=== PATIENT | male | born 1950 | race Two or more races ===

== ENCOUNTER 2017-01-01 18:25 | Inpatient (IN) | payer MEDICARE, OTHER ==
[~2017-01-01] VITALS: Ht 172.7 cm; Wt 86.9 kg
--- NOTE | 2017-01-01 18:25 | NUR ---
pt to ed room 04. sent by dr. saha for evaluation of possible UTI. a/a/o. side raisl up. hob elevated. [facility] and evaluated by ed provider.
--- NOTE | 2017-01-01 18:36 | NUR ---
CALLED [facility], DR ALMARAZ WAS PAGED.
[2017-01-01] MEDS ORDERED: HYDR-4077 PO (18:54)
[2017-01-01] MEDS ORDERED: UMEC1BLS IH (18:54)
[2017-01-01] MEDS ORDERED: CARB200T PO (18:54)
[2017-01-01] MEDS ORDERED: DOXE75CA4 PO (18:54)
[2017-01-01] MEDS ORDERED: QUET25TA PO (18:54)
[2017-01-01] MEDS ORDERED: ACET-868 PO (18:54)
[2017-01-01] MEDS ORDERED: ASPI81TA2 PO (18:54)
[2017-01-01] MEDS ORDERED: FURO20TA4 PO (18:54)
[2017-01-01] MEDS ORDERED: CARV25TA2 PO (18:54)
[2017-01-01] MEDS ORDERED: SORB30SO2 PO (18:54)
[2017-01-01] MEDS ORDERED: NITR0.4T6 SL (18:54)
[2017-01-01] MEDS ORDERED: SILO8CAP PO (18:54)
[2017-01-01] MEDS ORDERED: LACT10SO7 PO (18:54)
[2017-01-01] MEDS ORDERED: ATOR40TA PO (18:54)
[2017-01-01] MEDS ORDERED: DEXA4TAB PO (18:54)
[2017-01-01] MEDS ORDERED: FAMO20TA8 PO (18:54)
[2017-01-01] MEDS ORDERED: LINA290C PO (18:54)
[2017-01-01] MEDS ORDERED: ISOS60TA4 PO (18:54)
[2017-01-01] MEDS ORDERED: MECL-102 PO (18:54)
--- NOTE | 2017-01-01 18:54 | NUR ---
counter checker at bedside.
[2017-01-01 18:59] LABS: BASOPHILS % (AUTO) 0.4 % (0.0-2.0); EOSINOPHILS # (AUTO) 0.1 /CMM (0.0-0.7); EOSINOPHILS % (AUTO) 1.2 % (0.0-6.0); HEMATOCRIT 39 % (39-51); HEMOGLOBIN 12.9 g/dL (13.5-17.5); LYMPHOCYTES % (AUTO) 11.1 % (20.0-44.0); MEAN CORPUSCULAR HEMOGLOBIN 31 PG (26.0-33.0); MEAN CORPUSCULAR HGB CONC 33 g/dl (31.0-36.0); MEAN CORPUSCULAR VOLUME 93 fL (80-96); MONOCYTES # (AUTO) 0.6 /CMM (0.1-1.30); MONOCYTES % (AUTO) 6.7 % (2.0-12.0); NEUTROPHILS # (AUTO) 6.9 /CMM (1.8-8.9); NEUTROPHILS % (AUTO) 80.6 % (43.0-81.0); PLATELET COUNT (AUTO) 277 /CMM (150-450); RDW COEFFICIENT OF VARIATION 13.2 (11.5-15.0); RED BLOOD CELL COUNT(AUTO) 4.19 MIL/uL (4.5-6.0); WHITE BLOOD COUNT (AUTO) 8.6 K/uL (4.3-11.0)
--- NOTE | 2017-01-01 19:07 | NUR ---
chest xray at bedside
--- NOTE | 2017-01-01 19:13 | NUR ---
urine sample collected from patient and send to lab
[2017-01-01 19:15] LABS: ALANINE AMINOTRANSFERASE 30 U/L (12-78); ALBUMIN 3.4 g/dL (3.4-5.0); ALKALINE PHOSPHATASE 158 U/L (46-116); ASPARTATE AMINOTRANSFERASE 19 U/L (15-37); BILIRUBIN,TOTAL 0.3 mg/dL (0.2-1.0); CALCIUM, SERUM 8.3 mg/dL (8.5-10.1); CARBON DIOXIDE 25 mmol/L (21-32); CHLORIDE 105 mmol/L (98-107); GLUCOSE 140 mg/dL (74-106); POTASSIUM 3.8 mmol/L (3.5-5.1); SODIUM SERUM 137 mmol/L (136-145); TOTAL PROTEIN, SERUM 6.8 g/dL (6.4-8.2); UREA NITROGEN, BLOOD 14 mg/dL (7-18)
[2017-01-01 19:17] LABS: APPEARANCE,URINE Clear (CLEAR); BILIRUBIN,URINE Negative (NEGATIVE); BLOOD, URINE Negative Ery/uL (NEGATIVE); COLOR,URINE Yellow (YELLOW); KETONES,URINE Negative (NEGATIVE); LEUKOCYTE ESTERASE ,URINE Negative (NEGATIVE); NITRITE, URINE Negative (NEGATIVE); PROTEIN,URINE Negative (NEGATIVE); UGLUCOSE Negative (NEGATIVE)
[2017-01-01 19:47] LABS: TROPONIN I < 0.017 ng/mL (0.00-0.056)
--- NOTE | 2017-01-01 20:24 | NUR ---
REPORT CALLED TO M/S JERMAINE LOVING. WILL TRANSPORT PT TO ROOM 311.
[2017-01-01 20:45] VITALS: BP 145/70
--- NOTE | 2017-01-01 20:45 | NUR ---
MS RN NOTE: RECEIVED PATIENT FROM ER, NO ACUTE DISTRESS NOTED. BREATHING EVEN AND UNLABORED, NO SOB NOTED. IV TO RIGHT HAND IN PLACE. ORIENTED PATIENT TO ROOM AND USE OF CALL LIGHT. BED LOCKED AND IN LOWEST POSITION, CALL LIGHT IN REACH. WILL CONTINUE TO MONITOR.
--- NOTE | 2017-01-01 21:30 | NUR ---
MS RN NOTE: CALLED DR. UMER ALMARAZ FOR ADMIT ORDER. ORDERS RECEIVED, NOTED AND CARRIED OUT. WILL CONTINUE TO MONITOR.
[2017-01-01] MEDS ORDERED: LEVOFLOXACIN (250MG) 250 MG TABLET PO SCH (22:30)
[2017-01-01] MEDS ORDERED: QUETIAPINE FUMARATE 25 MG TABLET ONE (23:01)
[2017-01-01] MEDS ORDERED: ATORVASTATIN 40 MG TABLET ONE (23:01)
[2017-01-01] MEDS ORDERED: LEVOFLOXACIN (250MG) 250 MG TABLET ONE (23:02)
[2017-01-01] MEDS: ATORVASTATIN 40 MG TABLET PO SCH (23:11)
[2017-01-01] MEDS: QUETIAPINE FUMARATE 25 MG TABLET PO SCH (23:11)
[2017-01-02] MEDS: IV D5/ 0.9% NACL 1,000 ML IV PRN ×2 (00:52→20:34)
--- NOTE | 2017-01-02 06:15 | NUR ---
MS RN NOTE: PATIENT RESTING IN BED, NO ACUTE DISTRESS NOTED. BREATHING EVEN AND UNLABORED, NO SOB NOTED. IV TO RIGHT HAND IN PLACE, INFUSING D5NS AT 75 ML/HR. BED LOCKED AND IN LOWEST POSITION, CALL LIGHT IN REACH. WILL CONTINUE ENDORSE TODAY NURSE TO CONTINUE WITH PLAN OF CARE.
--- NOTE | 2017-01-02 07:25 | NUR ---
RN Initial Notes: Received patient resting in bed. Patient alert oriented x3. Patient on room air. Non-labored breathing noted. No signs of distress. Patient denies pain. IV on right hand patent and intact. Call light within reach. Will continue to monitor.
[2017-01-02 07:48] LABS: BASOPHILS % (AUTO) 0.3 % (0.0-2.0); EOSINOPHILS # (AUTO) 0.3 /CMM (0.0-0.7); EOSINOPHILS % (AUTO) 3.4 % (0.0-6.0); HEMATOCRIT 39 % (39-51); HEMOGLOBIN 13.2 g/dL (13.5-17.5); LYMPHOCYTES % (AUTO) 23.2 % (20.0-44.0); MEAN CORPUSCULAR HEMOGLOBIN 32 PG (26.0-33.0); MEAN CORPUSCULAR HGB CONC 34 g/dl (31.0-36.0); MEAN CORPUSCULAR VOLUME 95 fL (80-96); MONOCYTES # (AUTO) 0.9 /CMM (0.1-1.30); MONOCYTES % (AUTO) 10.4 % (2.0-12.0); NEUTROPHILS # (AUTO) 5.3 /CMM (1.8-8.9); NEUTROPHILS % (AUTO) 62.7 % (43.0-81.0); PLATELET COUNT (AUTO) 239 /CMM (150-450); RED BLOOD CELL COUNT(AUTO) 4.09 MIL/uL (4.5-6.0); WHITE BLOOD COUNT (AUTO) 8.5 K/uL (4.3-11.0)
[2017-01-02] MEDS ORDERED: LEVOFLOXACIN (250MG) 250 MG TABLET PO SCH (07:51)
[2017-01-02 08:00] VITALS: BP 159/73
[2017-01-02] MEDS ORDERED: ACETAMINOPHEN 325 MG TABLET PO PRN (08:30)
[2017-01-02] MEDS ORDERED: NITROGLYCERIN 0.4 MG/TAB BOTTLE SL PRN (08:30)
[2017-01-02 08:32] LABS: CREATININE 0.7 mg/dL (0.6-1.3); POTASSIUM 3.5 mmol/L (3.5-5.1)
[2017-01-02] MEDS: hydrALAZINE HCL 50 MG TABLET PO SCH ×3 (09:00→17:00)
[2017-01-02] MEDS ORDERED: LACTULOSE 10 G/15 ML UDC (PYXIS) PO PRN (09:00)
[2017-01-02] MEDS ORDERED: LINACLOTIDE 290 MCG PO SCH (09:30)
[2017-01-02] MEDS: ISOSORBIDE MONONITRATE 20 MG TABLET PO SCH ×2 (10:59→16:32)
[2017-01-02] MEDS: FUROSEMIDE 20 MG TABLET PO SCH (11:01)
[2017-01-02] MEDS: CARVEDILOL 12.5 MG TABLET PO SCH ×2 (11:01→21:00)
[2017-01-02] MEDS: CARBAMAZEPINE 200 MG TABLET PO SCH ×3 (11:02→17:31)
[2017-01-02] MEDS: DEXAMETHASONE 4 MG TABLET PO SCH (11:04)
[2017-01-02] MEDS: SORBITOL SOLUTION 30 ML PO SCH ×2 (11:05→17:32)
[2017-01-02] MEDS: UMECLIDINIUM BRM INH SCH (11:06)
[2017-01-02] MEDS: VILANTEROL TR INH SCH (11:06)
[2017-01-02] MEDS: ASPIRIN 81 MG TAB.CHEW PO SCH (11:27)
[2017-01-02] MEDS: MECLIZINE HCL 25 MG TABLET PO SCH ×3 (13:33→23:38)
[2017-01-02 16:00] VITALS: BP 112/67
[2017-01-02] MEDS: SILODOSIN 8 MG PO SCH (17:31)
[2017-01-02] MEDS: DOXEPIN HCL (25 MG) 25 MG CAPSULE PO SCH (17:32)
--- NOTE | 2017-01-02 18:56 | NUR ---
MS RN Closing Notes: Needs provided, attended, and anticipated. Patient stable. No signs of distress. No shortness of breath noted. Patient denies pain. IV access intact and patent. No adverse reactions of medications noted. MD Anabel notified of recent CT wo Contrast results. Awaiting orders. Call light within reach.
--- NOTE | 2017-01-02 19:30 | NUR ---
RN INITIAL NOTES: RECEIVED REPORT FROM KIKA DEAN, PT IN BED, AWAKE, A/O X2-3 NAURUAN SPEAKING, RESPIRATION EVEN AND UNLABORED, DENIES ANY PAIN OR DISCOMFORT AT THIS TIME, HAS RIGHT HAND IV ACCESS PATENT AND FLUSHING WELL, INFUISNG WITH D5NS AT 75ML/HR, NO S/S OF REDNESS OR INFILTRATION NOTED. BLE OFFLOADED, SAFETY PRECAUTIONS FOR FALL INITIATED CALL LIGHT IN REACH WILL CONTINUE TO MONITOR
[2017-01-02 20:00] VITALS: BP 105/55
--- NOTE | 2017-01-02 20:00 | NUR ---
RN NOTES: DR ALMARAZ AWARE OF THE RESULT OF MRI BRAIN, NO NEW ORDERS MADE
[2017-01-02 21:15] VITALS: BP 111/56
[2017-01-02] MEDS: ATORVASTATIN 40 MG TABLET PO SCH (21:15)
[2017-01-02] MEDS: QUETIAPINE FUMARATE 25 MG TABLET PO SCH ×2 (21:16→22:00)
--- NOTE | 2017-01-02 21:17 | NUR ---
non administration of coreg: coreg 25mg tab not administered to the pt due to decrease blood pressure and heart rate, 111/56 hr 63, pt denies any head ache light headedness or dizziness, rickie mckinnon turkmen speaking translated for the pt
--- NOTE | 2017-01-02 21:51 | NUR ---
RN NOTES: PT ASKED FOR SNACK, JUICE AND CRACKERS, CONSUMED 100% WITH GOOD APPETITE, NO ASPIRATION NOTED
[2017-01-02] MEDS ORDERED: ATORVASTATIN 40 MG TABLET PO SCH (22:00)
--- NOTE | 2017-01-02 22:05 | NUR ---
RN NOTES: THERE'S 2 ORDERS FOR SEROQUEL 50MG FOR PT, SCHEDULED FOR 2200, "SEROQUEL 50MG PO AT 2200", MEDICATION GIVEN TO THE PT, AND THERE'S ANOTHER ONE APPEARING PINK IN THE COMPUTER, RELAYED TO PHYSICAL TRAINERJÚNIOR FAJARDO, STATED TO DISREGARD THE OTHER MEDICATION ORDER
--- NOTE | 2017-01-02 22:30 | NUR ---
RN NOTES: PT IN BED, SLEEPING, RESPIRATION EVEN AND UNLABORED, NO FACIAL GRIMACE NOTED, IV ACCESS REMAINS PATENT AND FLUSHING WELL, INFUSING WITH D5NS AT 75ML/HR, BLE KEPT OFFLOADED, SAFETY PRECAUTIONS FOR FALL REMAINS ENGAGED CALL LIGHT IN REACH, ENDORSED TO RN KHALIF FOR CONTINUITY OF CARE
--- NOTE | 2017-01-02 22:30 | NUR ---
MS RN NOTES RECEIVED REPORT FROM VANESSA.PATIENT SOUND ASLEEP AT THIS TIME.WILL CONTINUE TO MONITOR STATUS
--- NOTE | 2017-01-02 23:30 | NUR ---
MS RN NOTES SOUND ASLEEP,ANTIVERT Q 6 HELD.
[2017-01-03] MEDS: MECLIZINE HCL 25 MG TABLET PO SCH ×4 (05:18→23:50)
--- NOTE | 2017-01-03 06:00 | NUR ---
MS RN NOTES DUE ANTIVERT ADMINISTERED.PM CARE RENDERED BY LUI DUPREE.NO FALL,NO INURY.IN NO ACUTE DISTRESS.ENDORSE TO DAY NURSE FOR FERNANDO.
--- NOTE | 2017-01-03 07:30 | NUR ---
MS RN Initial Notes: Received patient resting in bed. Non-labored breathing noted. No shortness of breath. No signs of distress. IV patent and intact. Patient alert oriented X3. Call light within reach. Will continue to monitor.
[2017-01-03 08:00] VITALS: BP 150/75
[2017-01-03] MEDS: ASPIRIN 81 MG TAB.CHEW PO SCH (08:24)
[2017-01-03] MEDS: FUROSEMIDE 20 MG TABLET PO SCH (08:24)
[2017-01-03] MEDS: DEXAMETHASONE 4 MG TABLET PO SCH (08:30)
[2017-01-03] MEDS: ISOSORBIDE MONONITRATE 20 MG TABLET PO SCH ×2 (08:31→17:12)
[2017-01-03] MEDS: CARVEDILOL 12.5 MG TABLET PO SCH ×2 (08:35→21:17)
[2017-01-03] MEDS: FAMOTIDINE (20 MG) 20 MG TABLET PO SCH (08:35)
[2017-01-03] MEDS: hydrALAZINE HCL 50 MG TABLET PO SCH ×3 (08:36→18:04)
[2017-01-03] MEDS: CARBAMAZEPINE 200 MG TABLET PO SCH ×3 (08:38→17:12)
[2017-01-03] MEDS: SORBITOL SOLUTION 30 ML PO SCH ×2 (08:38→17:12)
[2017-01-03] MEDS: UMECLIDINIUM BRM INH SCH (08:39)
[2017-01-03] MEDS: VILANTEROL TR INH SCH (08:39)
[2017-01-03] MEDS: IV D5/ 0.9% NACL 1,000 ML IV PRN (13:46)
[2017-01-03 16:00] VITALS: BP_SYST 105; BP_SYST 130; BP_DIAS 57; BP_DIAS 88
[2017-01-03] MEDS: DOXEPIN HCL (25 MG) 25 MG CAPSULE PO SCH (18:06)
[2017-01-03] MEDS: SILODOSIN 8 MG PO SCH (18:08)
--- NOTE | 2017-01-03 19:25 | NUR ---
MS RN Closing Notes: Needs provided, attended, and anticipated. Patient resting in bed. Patient stable. No shortness of breath noted. No signs of distress. Endorsed to next shift. Call light within reach.
[2017-01-03 20:00] VITALS: BP 112/63
--- NOTE | 2017-01-03 20:00 | NUR ---
MS/RN OPENING NOTES PATIENT IN BED, ALERT, ORIENTED X2. SPEAKS LITTLE Welsh, REWUIRE ASSISTANCE DUE TO RIGHT EYE VISION PROBLEM. INFORMED REGARDING PLAN OF CARE. WILL CONTINUE TO MONITOR AND PROVIDE CARE.
[2017-01-03 20:04] VITALS: BP 112/63
[2017-01-03] MEDS ORDERED: LEVOFLOXACIN (250MG) 250 MG TABLET PO SCH (21:00)
[2017-01-03] MEDS: QUETIAPINE FUMARATE 25 MG TABLET PO SCH ×2 (21:17→21:18)
[2017-01-03] MEDS: ATORVASTATIN 40 MG TABLET PO SCH (21:17)
[2017-01-04] MEDS: IV D5/ 0.9% NACL 1,000 ML IV PRN (03:28)
[2017-01-04] MEDS: MECLIZINE HCL 25 MG TABLET PO SCH ×3 (05:37→18:08)
--- NOTE | 2017-01-04 07:01 | NUR ---
MS/RN CLOSING NOTES PATIENT IN BED, ALERTX2.NO S/S OF DISCOMFORT. WILL ENDORSE TO AM RN REGARDING PLAN OF CARE.+
--- NOTE | 2017-01-04 07:30 | NUR ---
RECEIVED PT IN BED, SLEEPING BUT ABLE TO AROUSE. PT SHOWS NO SOB OR SIGNS OF PAIN. IV ON R HAND RUNNING D5NS AT 75ML/HR. SAFETY MEASURES ARE IN PLACE. WILL CONTINUE TO MONITOR.
[2017-01-04 08:00] VITALS: BP 156/78
[2017-01-04] MEDS: DEXAMETHASONE 4 MG TABLET PO SCH (08:52)
[2017-01-04] MEDS: SORBITOL SOLUTION 30 ML PO SCH ×2 (08:52→16:18)
[2017-01-04] MEDS: ASPIRIN 81 MG TAB.CHEW PO SCH (08:53)
[2017-01-04] MEDS: hydrALAZINE HCL 50 MG TABLET PO SCH ×3 (08:53→16:19)
[2017-01-04] MEDS: FUROSEMIDE 20 MG TABLET PO SCH (08:53)
[2017-01-04] MEDS: CARVEDILOL 12.5 MG TABLET PO SCH (08:53)
[2017-01-04] MEDS: ISOSORBIDE MONONITRATE 20 MG TABLET PO SCH ×2 (08:53→16:18)
[2017-01-04] MEDS: CARBAMAZEPINE 200 MG TABLET PO SCH ×3 (08:54→16:19)
[2017-01-04] MEDS: UMECLIDINIUM BRM INH SCH (08:54)
[2017-01-04] MEDS: VILANTEROL TR INH SCH (08:54)
[2017-01-04] MEDS: FAMOTIDINE (20 MG) 20 MG TABLET PO SCH (09:02)
--- NOTE | 2017-01-04 11:20 | NUR ---
Social service consult requested by Dr. Sravan Little regarding pt. lives alone. Pt. is a 66 year old male who was admitted to [facility] for generalized weakness. SW met with pt. bedside along with LUI Black to assist SW in translation. Pt. is Moldovan speaking. Pt. is alert and oriented x 2. Pt. informed SW he is living in [place] with a couple named Diana Harding and Titi Harding. Pt is unable to provide address and phone number to his facility in [place]. Pt. informed SW he was at [facility] and was discharged to a facility in [place]. Prior to being at [facility], pt. was living alone in [place]. Pt. receives approximately $964/ month in SSI benefits. Pt. states he has two brothers but was only able to provide name and phone number for one of them Titi Chowdary . Pt. states he has not been able to speak with his brothers since his phone has been disconnected due to non-payment. Pt. drinks alcohol and drinks six packs of beer daily for the past 25 years. Pt. is a cigarette smoker and smokes a pack per day. Pt. has been smoking for the past 32 years. SW to follow up with case management regarding placement. Addendum: 01/04/17 at 1137 by DULCE SMITH SARAH informed dependency case manager Nash regarding pt's prior facility.
[2017-01-04 16:00] VITALS: BP 107/57
[2017-01-04 16:19] VITALS: BP 107/57
[2017-01-04] MEDS: SILODOSIN 8 MG PO SCH (18:07)
[2017-01-04] MEDS: DOXEPIN HCL (25 MG) 25 MG CAPSULE PO SCH (18:08)
--- NOTE | 2017-01-04 18:40 | NUR ---
PT WAS DISCHARGED TO LOCATED WITHIN [facility] BY AMBULANCE. PT LEFT IN STABLE CONDITION, NO SOB OR COMPLAINTS OF PAIN. REPORT WAS GIVEN TO BRENDA AT [facility]. ALL MEDS WERE GIVEN ORDERED PRIOR TO DISCHARGE. Addendum: 01/04/17 at 1906 by ROWAN LERNER RN IV AND ID BAND WERE REMOVED.
== END 2017-01-04 19:03 | DRG 93 ==
LOC: ER 18:28 → MED 20:27
PROVIDERS: ADMIT Internal Medicine Nephrology; ATTEND Internal Medicine Nephrology
DX: G72.0 Drug-induced myopathy (principal); R53.1 Weakness; N40.0 Benign prostatic hyperplasia without lower urinary tract symptoms; T38.0X5A Adverse effect of glucocorticoids and synthetic analogues, initial encounter; Y92.89 Other specified places as the place of occurrence of the external cause; E11.9 Type 2 diabetes mellitus without complications; I10 Essential (primary) hypertension; J44.9 Chronic obstructive pulmonary disease, unspecified; Z85.841 Personal history of malignant neoplasm of brain; H54.42 Blindness, left eye, normal vision right eye; Z79.899 Other long term (current) drug therapy
CPT/HCPCS: 36415; 70450-TC; 71010-TC; 80048-TC; 80053-TC; 81000-TC; 84484-TC; 85025-TC; 87081-TC; 97001-TC; A4606; J3490; J7042; J8540; J8597; Z7610